=== PATIENT | male | born 1960 | race Caucasian/White ===

== ENCOUNTER 2018-10-28 10:04 | Emergency (ER) | payer OTHER ==
[2018-10-28 11:03] VITALS: BP 143/77
--- NOTE | 2018-10-28 12:02 | UC ---
Back Pain HPI - HPI Summary HPI Summary: right lower back x 5 days pain is sever, 8 out of 10 , no radiation no known injury , pain is worse with standing , better with rest, no numbness of LE , no n/v/d/c, no urinary sx - History of Current Complaint Chief Complaint: UCBackPain Stated Complaint: LOWER RT BACK PAIN Time Seen by Provider: 10/28/18 11:09 Hx Obtained From: Patient Onset/Duration: Gradual Onset, Lasting Days - 5, Still Present Timing: Constant Severity Initially: Moderate Severity Currently: Severe Pain Intensity: 9 Back Pain: Is Discrete @ - right lower back Character: Sharp Aggravating Factor(s): Movement, Bending, Walking Alleviating Factor(s): Rest Associated Signs And Symptoms: Negative: Swelling, Redness, Bruising, Fever, Weakness, Numbness, Tingling, Abdominal Pain, Flank Pain, Bladder Incontinence, Bowel Incontinence, Weight Loss - Allergies/Home Medications Allergies/Adverse Reactions: Allergies Allergy/AdvReac Type Severity Reaction Status Date / Time No Known Allergies Allergy Verified 10/28/18 11:03 Home Medications: Home Medications Ibuprofen 1,000 mg PO ONCE PRN 10/28/18 [History Confirmed 10/28/18] PMH/Surg Hx/FS Hx/Imm Hx Previously Healthy: Yes - Surgical History Surgical History: Yes Surgery Procedure, Year, and Place: right hip,. back surgery x2. left shoulder - Family History Known Family History: Negative: Diabetes - Social History Alcohol Use: Occasionally Substance Use Type: None Smoking Status (MU): Heavy Every Day Tobacco Smoker Amount Used/How Often: 1ppd Household Exposure Type: Cigarettes Review of Systems All Other Systems Reviewed And Are Negative: Yes Constitutional: Positive: Negative Skin: Positive: Negative Eyes: Positive: Negative ENT: Positive: Negative Respiratory: Positive: Negative Is Patient Immunocompromised?: No Physical Exam Triage Information Reviewed: Yes Appearance: Well-Nourished, Pain Distress Vital Signs: Initial Vital Signs Temp 97.8 F 10/28/18 10:56 Pulse 43 10/28/18 10:56 Resp 18 10/28/18 10:56 BP 143/77 10/28/18 10:56 Pulse Ox 100 10/28/18 10:56 Vital Signs Reviewed: Yes Eye Exam: Normal Eyes: Positive: Conjunctiva Clear ENT: Positive: Normal ENT inspection, Hearing grossly normal, Pharynx normal Neck: Positive: Supple, Nontender, No Lymphadenopathy Respiratory: Positive: Chest non-tender, Lungs clear, Normal breath sounds Cardiovascular: Positive: Bradycardia Abdomen Description: Positive: Nontender, Soft. Negative: CVA Tenderness (R), CVA Tenderness (L), Distended, Guarding Bowel Sounds: Positive: Present Musculoskeletal: Positive: Other: - lower back : no swelling, no erythema, + tenderness right lower back , limited ROM on flexion and extension Back Pain Course/Dx - Differential Dx/Diagnosis Provider Diagnosis: Lower back pain, Bradycardia Discharge - Sign-Out/Discharge Documenting (check all that apply): Patient Departure All imaging exams completed and their final reports reviewed: No Studies - Discharge Plan Condition: Stable Disposition: HOME Prescriptions: HYDROcodone/ACETAMIN 5-325 MG* [[place] 5-325 TAB*] 1 tab PO Q6H PRN #20 tab MDD 4 PRN Reason: Pain Patient Education Materials: Back Pain (ED), Bradycardia (ED) Referrals: No Primary Care Phys,NOPCP [Primary Care Provider] - 7 Days - Billing Disposition and Condition Condition: STABLE Disposition: Home
== END 2018-10-28 12:07 | disposition home or self-care (01) ==
LOC: UCCORT 10:04
DX: M54.5 Low back pain (principal); R00.1 Bradycardia, unspecified; F17.210 Nicotine dependence, cigarettes, uncomplicated
CPT/HCPCS: 93005; 99202; G0463

== ENCOUNTER 2018-10-30 09:55 | Emergency (ER) | payer OTHER ==
[2018-10-30 10:31] VITALS: BP 153/75
--- NOTE | 2018-10-30 11:21 | UC ---
Back Pain HPI - HPI Summary HPI Summary: 58-year-old male comes in with a chief complaint of right lower back pain. Started 6 days ago. It hurts more when he twists turns and bends. There are positions do decrease the pain. He's been taking Aleve and hydrocodone without any improvement. The pain medicine does decrease the pain while is on the pain medicine but the pain returns to its original intensity when the medicine wears off. Does have some pain near the right inguinal area that does radiate down to the testicle on the right. Denies any testicular pain problems with urination. He does have a history of kidney stones says it does not feel like a kidney stone. No fevers or chills. Did have some diarrhea. Is eating normally. Pain does not radiate down the leg. - History of Current Complaint Chief Complaint: UCBackPain Stated Complaint: LOWER BACK PAIN Time Seen by Provider: 10/30/18 10:52 Pain Intensity: 10 - Allergies/Home Medications Allergies/Adverse Reactions: Allergies Allergy/AdvReac Type Severity Reaction Status Date / Time No Known Allergies Allergy Verified 10/30/18 10:26 PMH/Surg Hx/FS Hx/Imm Hx Previously Healthy: Yes GI/ History: Kidney Stones - Surgical History Surgical History: Yes Surgery Procedure, Year, and Place: right hip,. back surgery x2. left shoulder - Family History Known Family History: Negative: Diabetes - Social History Alcohol Use: Rare Substance Use Type: None Smoking Status (MU): Heavy Every Day Tobacco Smoker Amount Used/How Often: 1 PPD Length of Time of Smoking/Using Tobacco: 30 YEAR Household Exposure Type: Cigarettes Review of Systems All Other Systems Reviewed And Are Negative: Yes Constitutional: Positive: Negative Skin: Positive: Negative Eyes: Positive: Negative ENT: Positive: Negative Respiratory: Positive: Negative Cardiovascular: Positive: Negative Gastrointestinal: Positive: Abdominal Pain, Diarrhea. Negative: Vomiting, Nausea Genitourinary: Positive: Negative Motor: Positive: Negative Neurovascular: Positive: Negative Musculoskeletal: Positive: Negative Neurological: Positive: Negative Psychological: Positive: Negative Is Patient Immunocompromised?: No Physical Exam Triage Information Reviewed: Yes Appearance: Well-Appearing, Well-Nourished, Pain Distress - mild with rom Vital Signs: Initial Vital Signs Temp 97.6 F 10/30/18 10:27 Pulse 50 10/30/18 10:27 Resp 16 10/30/18 10:27 BP 153/75 10/30/18 10:27 Pulse Ox 100 10/30/18 10:27 Vital Signs Reviewed: Yes Eye Exam: Normal Eyes: Positive: Conjunctiva Clear Neck: Positive: Supple Respiratory: Positive: Lungs clear, Normal breath sounds, No respiratory distress Cardiovascular: Positive: RRR Abdomen Description: Positive: Nontender, Soft, Other: - Mild tenderness proximal rt inguinal canal. No swelling. Bowel Sounds: Positive: Present Male Genital Exam: Positive: Normal Genitalia, Inguinal Tenderness - rt proximal ,mild, no swelling. Negative: Lesions, Scrotum Tenderness (R), Scrotum Tenderness (L), Testicular Tenderness (R), Testicular Tenderness (L) Musculoskeletal: Positive: Strength Intact, ROM Intact, Other: - Tender to palpation rt SI joint. Neurological Exam: Normal Neurological: Positive: Alert, Muscle Tone Normal Psychological Exam: Normal Psychological: Positive: Age Appropriate Behavior Skin Exam: Normal Back Pain Course/Dx - Course Course Of Treatment: Patient Name: SUSANNE ELI Medical Record#: [id number] Ordering Physician: Molina Mendez MD Acct.#: [id number] : 1960 Age: 58 Sex: M Location: [facility] Exam Date: 10/30/18 1115 ADM Status: REG ER Order Information: CT SPINE LUMBAR W/O Accession Number: [id number] CPT: 56450 Indication: RIGHT flank and lower back and sacroiliac joint region pain. Comparison: No relevant prior exams available on the [facility] PACS for comparison. Technique: Noncontrast CT lumbar sacral spine. Multiplanar reformation. Report: Negative for retroperitoneal hematoma or mass. Normal diameter abdominal aorta and iliac arteries with mild calcific plaque. Negative for fracture or spondylolysis at any level. Normal vertebral alignment without spondylolisthesis at any level. There is diffuse mild vertebral endplate osteophytosis and multilevel facet joint osteoarthritis producing multilevel alteration in the shape of the foramina and mild foraminal stenosis. More significant regions of foraminal stenosis are described level by level below. T12-L1: Unremarkable disc level for age without acquired spinal stenosis. L1-L2: Unremarkable disc level for age without acquired spinal stenosis. L2-L3: Vertebral endplate osteophytosis and facet joint osteoarthritis results in moderate bilateral foraminal stenosis. L3-L4: Unremarkable disc level for age without acquired spinal stenosis. L4-L5: Mild annular disc bulge and facet ligamentous hypertrophic arthropathy results in moderate bilateral foraminal stenosis. L5-S1: Annular disc bulge and facet ligamentous hypertrophic arthropathy results in moderate bilateral foraminal stenosis. Unremarkable normally aligned sacroiliac joints. IMPRESSION: #. Negative for fracture, spondylolysis, or spondylolisthesis. #. Multilevel degenerative spondylosis and facet joint osteoarthritis with resulting multilevel foraminal stenosis as described. <Electronically signed by Darwin Root MD in OV> 10/30/18 1213 Patient Name: SUSANNE ELI Medical Record#: [id number] Ordering Physician: Molina Mendez MD Acct.#: [id number] : 1960 Age: 58 Sex: M Location: [facility] Exam Date: 10/30/18 1115 ADM Status: REG ER Order Information: CT ABD/PEL W/O Accession Number: [id number] CPT: 89378 Indication: Right flank pain. CT of the abdomen and pelvis was performed without oral or IV contrast administration. Coronal and sagittal reconstructed images were obtained. Lung bases demonstrate no pleural fluid, nodules or masses heart is of normal size without pericardial effusion. Liver is normal in size. No focal lesions or intrahepatic ductal dilatation is noted. The gallbladder demonstrates no calcified gallstones. No pericholecystic fluid or wall thickening is identified. The pancreas demonstrates no mass or pancreatic duct dilatation. The spleen is normal in size. No adrenal masses are noted. The kidneys demonstrate no hydronephrosis of either kidney. Atherosclerotic aorta is noted. No retroperitoneal lymphadenopathy is noted. No dilated small bowel are noted. The colon is filled with stool. There is likely normal appendix noted. No pelvic adenopathy is noted although portions of the pelvis are obscured by right hip prosthesis. IMPRESSION: No obstructive uropathy is noted. Normal appendix. Patient is status post right hip replacement. <Electronically signed by Jennifer Page MD in OV> 10/30/[address] reports with the patient and his . Patient is point tender right at the right sacroiliac joint. Most likely cause of his pain is irritation in this joint or coming from his low back. No pathology found on CT abdomen and pelvis. No fevers or chills. Feels well otherwise. Plan is for the patient follow-up his primary care doctor get reevaluated sooner if he gets worse or any other questions or concerns. - Differential Dx/Diagnosis Provider Diagnosis: Sacro-iliac pain, Low back pain Discharge - Sign-Out/Discharge Documenting (check all that apply): Patient Departure All imaging exams completed and their final reports reviewed: Yes - Discharge Plan Condition: Stable Disposition: HOME Prescriptions: Cyclobenzaprine TAB* [Flexeril 10 MG TAB*] 10 mg PO TID PRN #15 tab MDD 3 PRN Reason: Pain Patient Education Materials: Acute Low Back Pain (ED), Lower Back Exercises (ED ) Referrals: [facility]IAN REFERRAL [Outside] Additional Instructions: FOLLOW UP WITH YOUR DOCTOR IF NOT COMPLETELY IMPROVED. GET REEVALUATED SOONER FOR ANY WORSENING OF YOUR CONDITION; PAIN, WEAKNESS, NUMBNESS, DIFFICULTY CONTROLLING BOWEL OR BLADDER OR ANY QUESTIONS OR CONCERNS. - Billing Disposition and Condition Condition: STABLE Disposition: Home
== END 2018-10-30 12:55 | disposition home or self-care (01) ==
LOC: UCCORT 09:55
DX: M54.5 Low back pain (principal); M53.3 Sacrococcygeal disorders, not elsewhere classified; R19.7 Diarrhea, unspecified; R10.9 Unspecified abdominal pain; F17.210 Nicotine dependence, cigarettes, uncomplicated
CPT/HCPCS: 72131; 74176; 81003; 99212; G0463